=== PATIENT | female | born 1960 ===

== ENCOUNTER 2021-03-03 05:40 | Emergency (ER) | payer BC ==
[2021-03-03] MEDS ORDERED: Ketorolac 60 MG/2 ML SDV IVPUSH ONE (05:54)
--- NOTE | 2021-03-03 08:23 | EDM.PDOC ---
ED HPI GENERAL MEDICAL PROBLEM - General Chief Complaint: Abdominal Pain Stated Complaint: abdomen pain Time Seen by Provider: 03/03/21 05:45 Source of Information: Reports: Patient History Limitations: Reports: No Limitations - History of Present Illness INITIAL COMMENTS - FREE TEXT/NARRATIVE: This patient presents to the emergency department for evaluation of back pain. She states she developed pain in her right lower back early this morning it woke her from sleep. She localizes it to the right CVA area and says that now it is traveling around to the front as well. She went to bed feeling perfectly fine. She denies fever, nausea, vomiting, diarrhea. 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 ED EXAM, RENAL/ - Physical Exam Exam: See Below Exam Limited By: No Limitations General Appearance: Alert, WD/WN, No Apparent Distress Eye Exam: Bilateral Eye: PERRL Ears: Normal External Exam Nose: Normal Inspection Head: Atraumatic, Normocephalic Neck: Normal Inspection, Non-Tender, Full Range of Motion Respiratory/Chest: No Respiratory Distress, Lungs Clear, Normal Breath Sounds, No Accessory Muscle Use Cardiovascular: Regular Rate, Rhythm GI/Abdominal: Soft, No Organomegaly, No Distention, Tender (Mild tenderness right lower quadrant), Abnormal Bowel Sounds (Decreased) Extremities: Normal Inspection Neurological: Alert, Oriented Psychiatric: Normal Affect, Normal Mood Course - Orders/Labs/Meds Orders: Active Orders 24 hr Category Date Time Status Abdomen Pelvis wo Cont [CT] Stat Exams 03/03/21 07:07 Taken Labs: Laboratory Tests 03/03/21 03/03/21 03/03/21 Range/Units 06:15 06:15 06:30 WBC 7.0 (4.0-11.0) K/uL RBC 4.69 (3.80-5.80) M/uL Hgb 13.6 (11.5-16.5) g/dL Hct 42.3 (37.0-47.0) % MCV 90 (76-96) fL MCH 29.0 (27.0-32.0) pg MCHC 32.2 (31.0-35.0) g/dL RDW 13.5 (11.0-16.0) % Plt Count 260 (150-500) K/uL MPV 9.5 (6.0-10.0) fL Neut % (Auto) 53.8 (45.0-70.0) % Lymph % (Auto) 33.3 (20.0-40.0) % Franklin % (Auto) 8.6 (3.0-10.0) % Eos % (Auto) 4.0 (1.0-5.0) % Baso % (Auto) 0.3 (0.0-0.5) % Neut # (Auto) 3.76 (2.00-7.50) K/uL Lymph # (Auto) 2.33 (1.50-4.00) K/uL Franklin # (Auto) 0.60 (0.20-0.80) K/uL Eos # (Auto) 0.28 (0.04-0.40) K/uL Baso # (Auto) 0.02 (0.02-0.10) K/uL Sodium 139 (136-145) mmol/L Potassium 3.9 (3.5-5.1) mmol/L Chloride 108 H (98-107) mmol/L Carbon Dioxide 25.9 (21.0-32.0) mmol/L Anion Gap 9.0 (5.0-15.0) mmol/L BUN 12 (8-26) mg/dL Creatinine 0.68 (0.55-1.02) mg/dL Est Cr Clr Drug Dosing TNP Estimated GFR (MDRD) > 60 (>60) MLS/MIN BUN/Creatinine Ratio 17.6 (6-25) Glucose 107 H (74-100) mg/dL Calcium 8.5 (8.5-10.1) mg/dL Urine Color Red Urine Appearance Cloudy (CLEAR) Urine pH 7.5 (5.0-8.0) Ur Specific [place] 1.020 (1.003-1.030) Urine Protein 100 H (NEGATIVE) mg/dL Urine Glucose (UA) Negative (NEGATIVE) mg/dL Urine Ketones Negative (NEGATIVE) mg/dL Urine Occult Blood Large H (NEGATIVE) Urine Nitrite Negative (NEGATIVE) Urine Bilirubin Small H (NEGATIVE) Urine Urobilinogen 1.0 (0.2-1.0) E.U./dL Ur Leukocyte Esterase Negative (NEGATIVE) Urine RBC >100 H /HPF Urine WBC 0-5 H /HPF Ur Squamous Epith Cells Few /HPF Meds: Medications Discontinued Medications Generic Name Dose Route Start Last Admin Trade Name Leah PRN Reason Stop Dose Admin Ketorolac Tromethamine 60 mg 03/03/21 05:54 Ketorolac 60 Mg/2 Ml Sdv IVPUSH 03/03/21 05:55 ONETIME ONE - Re-Assessments/Exams Free Text/Narrative Re-Assessment/Exam: 03/03/21 08:22 Patient presents to the ER with flank pain and abdominal pain. Differential diagnosis included urolithiasis, UTI, pyelonephritis, appendicitis, colitis, diverticulitis, volvulus, cyst. Signs and symptoms are most consistent with euro lithiasis. This was confirmed on CT with identification of a 4 mm stone. Her pain was well controlled in the ED with one dose of Toradol and she will be discharged home with Flomax and Percocet to be used for more severe pain. There are no signs of an infected stone. She is tolerating p.o. fluids. She is hemodynamically stable in the ED and she will follow up with her primary care provider as needed. Patient was stable at the time of discharge. Departure - Departure Time of Disposition: 08:20 Disposition: Home, Self-Care 01 Condition: Good Clinical Impression: Urolithiasis - Discharge Information *PRESCRIPTION DRUG MONITORING PROGRAM REVIEWED*: Not Applicable *COPY OF PRESCRIPTION DRUG MONITORING REPORT IN PATIENT NATALYA: Not Applicable Instructions: Kidney Stones, [id number] Referrals: PCP,None [Primary Care Provider] - Forms: ED Department Discharge Care Plan Goals: Take Percocet and Toradol as directed. drink plenty of fluids. follow up in a few days if pain has not resolved. Sepsis Event Note (ED) - Evaluation Sepsis Screening Result: No Definite Risk - My Orders Last 24 Hours: My Active Orders 03/03/21 07:07 Abdomen Pelvis wo Cont [CT] Stat - Assessment/Plan Last 24 Hours: My Active Orders 03/03/21 07:07 Abdomen Pelvis wo Cont [CT] Stat
--- NOTE | 2021-03-03 13:04 | CT ---
Date of Service: 03/03/21 Clinical Data: abd pain UNENHANCED ABDOMEN AND PELVIC CT: Multislice acquisition through the abdomen and pelvis without IV and without oral contrast was performed. Comparison is made to a prior enhanced abdomen and pelvic CT dated 01/04/13. There are atelectatic changes at dependent portions of both lower lungs. There is a linear density at the left lung base consistent with linear atelectasis or fibrosis. The lung bases are otherwise clear. The heart size is normal. The unenhanced liver appears normal. No focal hepatic lesions. The gallbladder appears normal. No calcified gallstones. The spleen appears normal. There is a 1 cm nodule anterior to the spleen consistent with an accessory spleen. The pancreas appears normal. The right and adrenals appear normal. There is a 3 mm calculus located in the proximal right ureter just distal to the ureteropelvic junction. There is mild hydronephrosis proximal to it. The right and left kidneys otherwise appear normal. No nephrocalcinosis or nephrolithiasis. There is a small amount of fluid within the bladder It appears normal. There is fluid within the endometrial cavity of the uterus. Ultrasound may be helpful. No evidence of appendicitis. There is a moderate amount of stool present in the cecum, ascending colon, and transverse colon. There is mild diverticulosis of the descending and sigmoid colon. No evidence of diverticulitis. No free air. No free fluid. No dilated loops of bowel. No adenopathy. No aortic aneurysm. No other significant findings. IMPRESSION: Proximal right ureteral calculus. Fluid in endometrial cavity of the uterus. See above. [id number] MTDD
== END 2021-03-03 08:34 | disposition home or self-care (01) ==
LOC: LB.ED 05:40
DX: N13.2 Hydronephrosis with renal and ureteral calculous obstruction (principal)
CPT/HCPCS: 36415; 74176; 80048; 81001; 85025; 96374; 99284; J1885

== ENCOUNTER 2021-03-03 21:33 | Emergency (ER) | payer BC ==
[~2021-03-03 21:33] MED LIST: Acetaminophen/HYDROcodone 325-5 MG Tab ONE; Ondansetron 4 MG Tab.DIS ONE
[2021-03-03] MEDS ORDERED: Ketorolac 60 MG/2 ML SDV IM ONE (22:09)
[2021-03-03] MEDS ORDERED: Ondansetron 4 MG Tab.DIS PO ONE (22:09)
--- NOTE | 2021-03-03 22:11 | EDM.PDOC ---
ED HPI GENERAL MEDICAL PROBLEM - General Chief Complaint: Abdominal Pain Stated Complaint: Kidney Stone Time Seen by Provider: 03/03/21 22:00 Source of Information: Reports: Patient History Limitations: Reports: No Limitations - History of Present Illness INITIAL COMMENTS - FREE TEXT/NARRATIVE: This patient returns to the emergency department approximately 16 hours after diagnosis with a kidney stone. She was sent home this morning with diagnosis of 4 mm stone with Percocet and Flomax. She returns because she states the pain is unbearable and the Percocet is not helping her. She is crying, writhing and states that she is not getting any relief. She denies new concerns or complaints. 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 ED EXAM, RENAL/ - Physical Exam Exam: See Below Exam Limited By: No Limitations General Appearance: Alert, Anxious, Severe Distress Eye Exam: Bilateral Eye: PERRL Ears: Normal External Exam Throat/Mouth: Normal Inspection Head: Atraumatic, Normocephalic Neck: Normal Inspection, Full Range of Motion Respiratory/Chest: No Respiratory Distress, Normal Breath Sounds, No Accessory Muscle Use Cardiovascular: Regular Rate, Rhythm GI/Abdominal: Tender (Right lower quadrant) Back Exam: CVA Tenderness (R). No: CVA Tenderness (L) Neurological: Alert, Oriented Course - Orders/Labs/Meds Meds: Medications Discontinued Medications Generic Name Dose Route Start Last Admin Trade Name Freq PRN Reason Stop Dose Admin Ketorolac Tromethamine 60 mg 03/03/21 22:09 03/03/21 22:05 Ketorolac 60 Mg/2 Ml Sdv IM 03/03/21 22:10 60 mg ONETIME ONE Administration Ondansetron HCl 4 mg 03/03/21 22:09 03/03/21 22:08 Ondansetron 4 Mg Tab.Dis PO 03/03/21 22:10 4 mg ONETIME ONE Administration - Re-Assessments/Exams Free Text/Narrative Re-Assessment/Exam: 03/04/21 08:24 This patient presents to the emergency department for pain. She has a diagnosis of kidney stone and was given pain medications this morning however she states they are not working. She was given Toradol in the ED which gave her significant relief as well as some Zofran for vomiting and nausea. She is quite comfortable on reassessment. She was given a prescription for hydrocodone and instructed to return home, drink extra fluids and use medications as previously prescribed. Departure - Departure Time of Disposition: 22:30 Disposition: DC/[facility]fer to [facility]04 Condition: Good Clinical Impression: Urolithiasis, Kidney calculi - Discharge Information Instructions: Kidney Stones, [id number], Nausea and Vomiting, Adult Referrals: PCP,None [Primary Care Provider] - Forms: ED Department Discharge Additional Instructions: Take Hydrocodone 5mg one tab every 6 hours as needed for pain. Take Zofran 4mg ODT every 6 hours as needed for pain.
== END 2021-03-03 22:56 | disposition home or self-care (01) ==
LOC: LB.ED 21:33
DX: N20.2 Calculus of kidney with calculus of ureter (principal)
CPT/HCPCS: 96372; 99283; A9270; J1885